=== PATIENT | female | born 1945 | race Two or more races ===

== ENCOUNTER → 2020-01-08 | Day surgery (SDC) | payer MEDICARE, OTHER ==
[2020-01-06 11:30] VITALS: BMI 29.8
[~2020-01-08] MED LIST: LACTATED RINGERS 1,000 ML IV SCH; LIDOCAINE 1% (10MG/ML) FOR IV START INTRADERMA PRN; LIDOCAINE 1% INJ 10MG/ML (20 ML MDV) ONE; PROPOFOL 10 MG/ML 20 ML VIAL IV ONE
[2020-01-08 07:47] LABS: Glucose,Whole Blood 134 mg/dL (75-99)
[2020-01-08 07:52] VITALS: TEMP 97.4
--- NOTE | 2020-01-08 08:17 | P.GSHP ---
History of Present Illness H&P Date: 01/08/20 CHIEF COMPLAINT: GERD and colon screen HISTORY OF PRESENT ILLNESS: The patient is a 74-year-old female who presents with gastroesophageal reflux disease and need for colon screen. Upper and lower endoscopy were offered for further evaluation and management. PAST MEDICAL HISTORY: Please see list. PAST SURGICAL HISTORY: Please see list. MEDICATIONS: Please see list. ALLERGIES: Please see list. SOCIAL HISTORY: No illicit drug use FAMILY HISTORY: No reports of Crohn disease or ulcerative colitis. REVIEW OF ORGAN SYSTEMS: CONSTITUTIONAL: No reports of fevers or chills. GI: Denies any blood in stools or constipation. PHYSICAL EXAM: VITAL SIGNS: Stable GENERAL: Well-developed pleasant in no acute distress. HEENT: No scleral icterus. Extraocular movements grossly intact. Moist buccal mucosa. NECK: Supple without lymphadenopathy. CHEST: Unlabored respirations. Equal bilateral excursions. CARDIOVASCULAR: Regular rate and rhythm. Distal 2+ pulses. ABDOMEN: Soft, nondistended. MUSCULOSKELETAL: No clubbing, cyanosis, or edema. ASSESSMENT: 1. Gastroesophageal reflux disease 2. Colon screen. PLAN: 1. 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, grade 1, states no chemo or radiation following, states had recent CT scan which showed "problems with my liver, spots on my kidney, some diverticulitis, and stones in my gallbladder" History of Any Multi-Drug Resistant Organisms: None Reported Past Surgical History: Hysterectomy, Orthopedic Surgery Additional Past Surgical History / Comment(s): mauricio carpal tunnel Past Anesthesia/Blood Transfusion Reactions: No Reported Reaction Past Psychological History: Anxiety Past Alcohol Use History: None Reported Past Drug Use History: None Reported - Past Family History Mother Family Medical History: Cancer Sister(s) Family Medical History: Cancer Additional Family Medical History / Comment(s): breast Medications and Allergies Home Medications Medication Instructions Recorded Confirmed Type ALPRAZolam [Xanax] 0.5 mg PO BID 01/06/20 01/08/20 History Acetaminophen Tab [Tylenol] 325 mg PO Q4H PRN 01/06/20 01/08/20 History Cholecalciferol [Vitamin D3 (25 2,000 unit PO DAILY 01/06/20 01/08/20 History Mcg = 1000 Iu)] Dapagliflozin Propanediol [Farxiga] 10 mg PO DAILY 01/06/20 01/08/20 History Docusate [Colace] 100 mg PO DAILY 01/06/20 01/08/20 History Escitalopram [Lexapro] 10 mg PO QAM 01/06/20 01/08/20 History Isosorbide Mononitrate [Isosorbide 30 mg PO DAILY 01/06/20 01/08/20 History Mononitrate ER] Levothyroxine Sodium [Levoxyl] 112 mcg PO DAILY 01/06/20 01/08/20 History Lisinopril-Hctz 20-12.5 mg 0.5 tab PO QAM 01/06/20 01/08/20 History [Zestoretic 20-12.5] Magnesium 200 mg PO DAILY 01/06/20 01/08/20 History Ondansetron [Zofran ODT] 4 mg PO Q8HR PRN 01/06/20 01/08/20 History glipiZIDE [Glucotrol] 10 mg PO AC-BRKFST 01/06/20 01/08/20 History Allergies Allergy/AdvReac Type Severity Reaction Status Date / Time No Known Allergies Allergy Verified 01/08/20 07:31 Surgical - Exam Vital Signs Temp Pulse Resp BP Pulse Ox 97.4 F L 71 18 161/78 94 L 01/08/20 07:40 01/08/20 07:40 01/08/20 07:40 01/08/20 07:40 01/08/20 07:40 Results - Labs Abnormal Lab Results - Last 24 Hours (Table) 01/08/20 Range/Units 07:46 POC Glucose (mg/dL) 134 H (75-99) mg/dL
--- NOTE | 2020-01-08 08:19 | P.PCN ---
Date of Procedure: 01/08/20 Description of Procedure: PREOPERATIVE DIAGNOSIS: Gastroesophageal reflux disease. Epigastric abdominal pain POSTOPERATIVE DIAGNOSIS: Gastroesophageal reflux disease. Epigastric abdominal pain Gastritis. Diaphragmatic hiatal hernia OPERATION: Esophagogastroduodenoscopy with biopsies along antrum. SURGEON: Viktoriya Lin MD ANESTHESIA: MAC. INDICATIONS: The patient is a 74-year-old female who presents with a history of reflux disease. Benefits and risks of the procedure were described. Informed consent was obtained. DESCRIPTION: The patient was brought into the endoscopy suite and laid in the left lateral decubitus position. An Olympus gastroscope was passed along the posterior oropharynx down to the distal esophagus where the squamocolumnar junction was encountered at 34 cm from the incisors. The stomach was entered and no bile reflux was found. Additional findings are listed below. Biopsies with cold forceps were obtained of the antrum. The first through third portion of the duodenum was examined and unremarkable. Retroflexion of the scope confirmed Hill grade 2 lower esophageal valve. The squamocolumnar junction demonstrated LA grade B erosive esophagitis. The stomach was desufflated. The patient tolerated the procedure well. FINDINGS: Squamocolumnar junction 34 cm from the incisors. Diaphragmatic hiatus at 35 cm. Hiatal hernia, 1 cm Hill grade 2 lower esophageal valve. LA grade B erosive esophagitis. No active duodenitis. Chronic gastritis RECOMMENDATIONS: Upper endoscopy as needed.
--- NOTE | 2020-01-08 08:41 | P.PCN ---
Date of Procedure: 01/08/20 Description of Procedure: PREOPERATIVE DIAGNOSIS: Colonoscopy screening POSTOPERATIVE DIAGNOSIS: Colonoscopy screening Tubular adenoma sigmoid colon 3 Sigmoid diverticulosis Internal hemorrhoids, grade 2 OPERATION: Colonoscopy to the ileocecal valve and appendiceal orifice, cecum Colonoscopy with cold forceps biopsies SURGEON: Viktoriya Lin MD. ANESTHESIA: MAC. INDICATIONS: The patient is an 74-year-old female who presents for her first colonoscopy screening. Benefits and risks were described and informed consent was obtained. DESCRIPTION OF PROCEDURE: The patient had undergone Suprep. She had been brought into the operating room and laid in the left lateral decubitus position. After adequate intravenous sedation, the rectum was examined with 2% lidocaine jelly. External hemorrhoids were encountered. The rectal tone was within normal limits. No lesions were palpated in the rectal vault. An Olympus colonoscope was advanced until the cecum, ileocecal valve and appendiceal orifice were clearly viewed. The prep was fair. Sigmoid diverticulosis was encountered. Multiple colonic polyps were found and removed with cold forceps. No evidence of focal colitis was found. Retroflexion of the scope demonstrated grade 2 internal hemorrhoids without active bleeding or inflammation. The colon was desufflated. The patient had tolerated the procedure well. Withdrawal time was over 6 minutes. FINDINGS: Aronchick preparation quality scale 2 (1-5) Internal hemorrhoids, grade 2 External hemorrhoids, grade 2 No arteriovenous malformations Sigmoid diverticulosis Removal of 3 polyps: - Cold forceps biopsy at 15 cm from the anal verge x 3, 3 to 5 mm polyps No focal colitis. RECOMMENDATIONS: Repeat colonoscopy in 5 years, 2024 or Cologua Plan - Discharge Summary Discharge Rx Participant: No New Discharge Prescriptions: Continue Ondansetron [Zofran ODT] 4 mg PO Q8HR PRN PRN Reason: Nausea Escitalopram [Lexapro] 10 mg PO QAM Docusate [Colace] 100 mg PO DAILY Acetaminophen Tab [Tylenol] 325 mg PO Q4H PRN PRN Reason: Pain glipiZIDE [Glucotrol] 10 mg PO AC-BRKFST Isosorbide Mononitrate [Isosorbide Mononitrate ER] 30 mg PO DAILY Cholecalciferol [Vitamin D3 (25 Mcg = 1000 Iu)] 2,000 unit PO DAILY Lisinopril-Hctz 20-12.5 mg [Zestoretic 20-12.5] 0.5 tab PO QAM Levothyroxine Sodium [Levoxyl] 112 mcg PO DAILY ALPRAZolam [Xanax] 0.5 mg PO BID Magnesium 200 mg PO DAILY Dapagliflozin Propanediol [Farxiga] 10 mg PO DAILY Discharge Medication List ALPRAZolam [Xanax] 0.5 mg PO BID 01/06/20 [History] Acetaminophen Tab [Tylenol] 325 mg PO Q4H PRN 01/06/20 [History] Cholecalciferol [Vitamin D3 (25 Mcg = 1000 Iu)] 2,000 unit PO DAILY 01/06/20 [History] Dapagliflozin Propanediol [Farxiga] 10 mg PO DAILY 01/06/20 [History] Docusate [Colace] 100 mg PO DAILY 01/06/20 [History] Escitalopram [Lexapro] 10 mg PO QAM 01/06/20 [History] Isosorbide Mononitrate [Isosorbide Mononitrate ER] 30 mg PO DAILY 01/06/20 [History] Levothyroxine Sodium [Levoxyl] 112 mcg PO DAILY 01/06/20 [History] Lisinopril-Hctz 20-12.5 mg [Zestoretic 20-12.5] 0.5 tab PO QAM 01/06/20 [History] Magnesium 200 mg PO DAILY 01/06/20 [History] Ondansetron [Zofran ODT] 4 mg PO Q8HR PRN 01/06/20 [History] glipiZIDE [Glucotrol] 10 mg PO AC-BRKFST 01/06/20 [History] Follow up Appointment(s)/Referral(s): Viktoriya Lin MD [STAFF PHYSICIAN] - 01/23/20 Patient Instructions/Handouts: Diverticulosis Diet (GEN), Diverticulosis (DC) Activity/Diet/Wound Care/Special Instructions: Repeat colonoscopy 5 years, 2024 or Cologaurd Discharge Disposition: HOME SELF-CARE
[2020-01-08 08:45] VITALS: PULSE 77
[2020-01-08 08:59] VITALS: BP 171/76; RESP 16
== END | disposition home or self-care (01) ==
LOC: ORWHC2ENDO 06:37
PROVIDERS: ATTEND Surgery Plastic and Reconstructive Surgery
DX: K29.50 Unspecified chronic gastritis without bleeding (principal); Z12.11 Encounter for screening for malignant neoplasm of colon; D12.5 Benign neoplasm of sigmoid colon; K57.30 Diverticulosis of large intestine without perforation or abscess without bleeding; K64.1 Second degree hemorrhoids; K64.4 Residual hemorrhoidal skin tags; K21.0 Gastro-esophageal reflux disease with esophagitis; K44.9 Diaphragmatic hernia without obstruction or gangrene; E11.9 Type 2 diabetes mellitus without complications; I10 Essential (primary) hypertension; E07.9 Disorder of thyroid, unspecified; F41.9 Anxiety disorder, unspecified; R93.89 Abnormal findings on diagnostic imaging of other specified body structures; Z79.899 Other long term (current) drug therapy; Z79.890 Hormone replacement therapy; Z79.84 Long term (current) use of oral hypoglycemic drugs; Z85.42 Personal history of malignant neoplasm of other parts of uterus; Z90.710 Acquired absence of both cervix and uterus; Z98.890 Other specified postprocedural states; Z80.3 Family history of malignant neoplasm of breast
CPT/HCPCS: 88305; 45380; 43239; J2001; J2704

== ENCOUNTER 2020-02-10 06:03 | Day surgery (SDC) | payer MEDICARE, OTHER ==
[2020-02-07 10:21] VITALS: BMI 29.4
[~2020-02-10 06:03] MED LIST changes: +HEPARIN SODIUM,PORCINE 5,000 UNIT/ML 1 ML VIAL SQ ONE; -LACTATED RINGERS 1,000 ML IV SCH; -LIDOCAINE 1% (10MG/ML) FOR IV START INTRADERMA PRN; -LIDOCAINE 1% INJ 10MG/ML (20 ML MDV) ONE; -PROPOFOL 10 MG/ML 20 ML VIAL IV ONE
[2020-02-10] MEDS ORDERED: HYDROmorphone 0.5 MG/0.5 ML SYRINGE IVP PRN (06:12)
[2020-02-10] MEDS ORDERED: MIDAZOLAM 2 MG/2 ML VIAL IV PRN (06:12)
[2020-02-10] MEDS ORDERED: ONDANSETRON 4 MG/2 ML VIAL IVP ONE (06:12)
[2020-02-10] MEDS ORDERED: LACTATED RINGERS 1,000 ML IV SCH (06:12)
[2020-02-10] MEDS ORDERED: DEXAMETHASONE SOD PHOSPHATE 10 MG/ML 1 ML VIAL IV ONE (06:12)
[2020-02-10] MEDS ORDERED: ONDANSETRON 4 MG/2 ML VIAL ONE (06:16)
[2020-02-10] MEDS ORDERED: LIDOCAINE 1% (10MG/ML) FOR IV START INTRADERMA ONE (06:29)
[2020-02-10 06:40] LABS: Glucose,Whole Blood 100 mg/dL (75-99)
[2020-02-10] MEDS ORDERED: LACTATED RINGERS 1,000 ML IV ONE ×2 (06:47→08:48)
[2020-02-10 06:58] LABS: HCT 44.4 % (34.0-46.0); HGB 13.7 gm/dL (11.4-16.0); MCH 27.9 pg (25.0-35.0); MCHC 30.9 g/dL (31.0-37.0); MCV 90.1 fL (80.0-100.0); Mean Platelet Volume 9.9; Platelet Count 172 k/uL (150-450); RBC 4.93 m/uL (3.80-5.40); RDW 13.4 % (11.5-15.5); WBC 5.9 k/uL (3.8-10.6)
[2020-02-10 07:05] LABS: Albumin 3.9 g/dL (3.5-5.0); Calcium 9.6 mg/dL (8.4-10.2); Potassium 4.5 mmol/L (3.5-5.1); Total Bilirubin 0.7 mg/dL (0.2-1.3); Total Protein 6.5 g/dL (6.3-8.2)
[2020-02-10] MEDS ORDERED: ROCURONIUM 10 MG/ML (5 ML VIAL) IV ONE (07:28)
[2020-02-10] MEDS ORDERED: INDOCYANINE GREEN 25 MG VIAL IV ONE (07:28)
[2020-02-10] MEDS ORDERED: GLYCOPYRROLATE 0.2 MG/ML 2 ML VIAL ONE (07:28)
[2020-02-10] MEDS ORDERED: PROPOFOL 10 MG/ML 20 ML VIAL IV ONE (07:28)
[2020-02-10] MEDS ORDERED: NEOSTIGMINE 1 MG/ML 10 ML VIAL ONE (07:28)
[2020-02-10] MEDS ORDERED: LIDOCAINE 1% INJ 10MG/ML (20 ML MDV) ONE (07:28)
[2020-02-10] MEDS ORDERED: SUCCINYLCHOLINE CHLORIDE 100 MG/5 ML SYR IV ONE (07:28)
[2020-02-10] MEDS ORDERED: fentaNYL (PF) 50 MCG/ML 2 ML AMP ONE (07:28)
--- NOTE | 2020-02-10 07:38 | P.GSHP ---
History of Present Illness H&P Date: 02/10/20 CHIEF COMPLAINT: Cholecystitis HISTORY OF PRESENT ILLNESS: The patient is a 74-year-old female who presents with history of epigastric including right upper quadrant abdominal pain. She underwent diagnostic studies for her gallbladder. Separately her clinical picture was consistent with cholecystitis. Now she presents for surgical intervention. PAST MEDICAL HISTORY: Please see list PAST SURGICAL HISTORY: Please see list MEDICATIONS: Please see list ALLERGIES: Please see list SOCIAL HISTORY: Please see list FAMILY HISTORY: Please see list REVIEW OF ORGAN SYSTEMS: CONSTITUTIONAL: No reports of fevers or chills. HEENT: Denies any troubles with the vision or hearing. ENDOCRINE: No reports of hypothyroidism. No diabetes. RESPIRATORY: No recent pneumonias. CARDIOVASCULAR: Denies chest pain or palpitations. History of hypertensive heart disease GI: No blood in stools or constipation. MUSCULOSKELETAL: Has occasional joint pain including back pain. NEURO: No seizure disorders or headaches. No recent stroke. PSYCH: No depression or suicidal ideation. GENITOURINARY: No active blood in urine. No urinary hesitancy. History of stage II chronic renal disorder HEMATOLOGIC: No personal or family history of DVTs or pulmonary emboli. SKIN: No skin cancer. PHYSICAL EXAM: VITAL SIGNS: Afebrile vital signs stable GENERAL: Well-developed pleasant in no acute distress. HEENT: No scleral icterus. Extraocular movements grossly intact. Moist buccal mucosa. NECK: Supple without lymphadenopathy. CHEST: Unlabored respirations. Equal bilateral excursions. CARDIOVASCULAR: Regular rate regular rhythm rhythm. Distal 2+ pulses. ABDOMEN: Soft, nondistended. Tender along the epigastrium and right upper quadrant. MUSCULOSKELETAL: No clubbing, cyanosis, or edema. NEURO: Cranial nerves II to XII within normal limits. No focal or lateralizing signs. PSYCH: Alert and oriented to person, place and time. SKIN: Well-perfused good skin turgor. ASSESSMENT: 1. Epigastric and right upper quadrant abdominal pain 2. Chronic cholecystitis 3. Symptomatic gallstones. PLAN: 1. Will need a robotic cholecystectomy possible open. Benefits and risks were described. 2. Heparin for DVT prophylaxis 5000 units. 3. Antibiotic prophylaxis. 4. 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, grade 1, states no chemo or radiation following, states had recent CT scan which showed "problems with my liver, spots on my kidney, some diverticulitis, and stones in my gallbladder" History of Any Multi-Drug Resistant Organisms: None Reported Past Surgical History: Hysterectomy, Orthopedic Surgery Additional Past Surgical History / Comment(s): mauricio carpal tunnel Past Anesthesia/Blood Transfusion Reactions: No Reported Reaction Smoking Status: Never smoker - Past Family History Mother Family Medical History: Cancer Sister(s) Family Medical History: Cancer Additional Family Medical History / Comment(s): breast Medications and Allergies Home Medications Medication Instructions Recorded Confirmed Type ALPRAZolam [Xanax] 0.5 mg PO BID 01/06/20 02/07/20 History Acetaminophen Tab [Tylenol] 325 mg PO Q4H PRN 01/06/20 02/07/20 History Cholecalciferol [Vitamin D3 (25 2,000 unit PO DAILY 01/06/20 02/07/20 History Mcg = 1000 Iu)] Dapagliflozin Propanediol [Farxiga] 10 mg PO DAILY 01/06/20 02/07/20 History Docusate [Colace] 100 mg PO DAILY 01/06/20 02/07/20 History Escitalopram [Lexapro] 10 mg PO QAM 01/06/20 02/07/20 History Isosorbide Mononitrate [Isosorbide 30 mg PO DAILY 01/06/20 02/07/20 History Mononitrate ER] Levothyroxine Sodium [Levoxyl] 112 mcg PO DAILY 01/06/20 02/07/20 History Lisinopril-Hctz 20-12.5 mg 0.5 tab PO QAM 01/06/20 02/07/20 History [Zestoretic 20-12.5] glipiZIDE [Glucotrol] 10 mg PO AC-BRKFST 01/06/20 02/07/20 History Allergies Allergy/AdvReac Type Severity Reaction Status Date / Time No Known Allergies Allergy Verified 02/07/20 10:17 Surgical - Exam Vital Signs Temp Pulse Resp BP Pulse Ox 97.8 F 65 18 141/67 95 02/10/20 06:26 02/10/20 06:26 02/10/20 06:26 02/10/20 06:26 02/10/20 06:26 Results - Labs 02/10/20 06:40 02/10/20 06:40 Abnormal Lab Results - Last 24 Hours (Table) 02/10/20 02/10/20 02/10/20 Range/Units 06:36 06:40 06:40 MCHC 30.9 L (31.0-37.0) g/dL Carbon Dioxide 32 H (22-30) mmol/L BUN 18 H (7-17) mg/dL Glucose 107 H (74-99) mg/dL POC Glucose (mg/dL) 100 H (75-99) mg/dL Diabetes panel 02/10/20 Range/Units 06:40 Sodium 140 (137-145) mmol/L Potassium 4.5 (3.5-5.1) mmol/L Chloride 104 (98-107) mmol/L Carbon Dioxide 32 H (22-30) mmol/L BUN 18 H (7-17) mg/dL Creatinine 0.88 (0.52-1.04) mg/dL Glucose 107 H (74-99) mg/dL Calcium 9.6 (8.4-10.2) mg/dL AST 24 (14-36) U/L ALT 15 (4-34) U/L Alkaline Phosphatase 80 (38-126) U/L Total Protein 6.5 (6.3-8.2) g/dL Albumin 3.9 (3.5-5.0) g/dL Calcium panel 02/10/20 Range/Units 06:40 Calcium 9.6 (8.4-10.2) mg/dL Albumin 3.9 (3.5-5.0) g/dL Pituitary panel 02/10/20 Range/Units 06:40 Sodium 140 (137-145) mmol/L Potassium 4.5 (3.5-5.1) mmol/L Chloride 104 (98-107) mmol/L Carbon Dioxide 32 H (22-30) mmol/L BUN 18 H (7-17) mg/dL Creatinine 0.88 (0.52-1.04) mg/dL Glucose 107 H (74-99) mg/dL Calcium 9.6 (8.4-10.2) mg/dL Adrenal panel 02/10/20 Range/Units 06:40 Sodium 140 (137-145) mmol/L Potassium 4.5 (3.5-5.1) mmol/L Chloride 104 (98-107) mmol/L Carbon Dioxide 32 H (22-30) mmol/L BUN 18 H (7-17) mg/dL Creatinine 0.88 (0.52-1.04) mg/dL Glucose 107 H (74-99) mg/dL Calcium 9.6 (8.4-10.2) mg/dL Total Bilirubin 0.7 (0.2-1.3) mg/dL AST 24 (14-36) U/L ALT 15 (4-34) U/L Alkaline Phosphatase 80 (38-126) U/L Total Protein 6.5 (6.3-8.2) g/dL Albumin 3.9 (3.5-5.0) g/dL
[2020-02-10] MEDS ORDERED: LIDOCAINE 1%-EPI 1:100,000 20 ML VIAL SQ ONE (07:59)
--- NOTE | 2020-02-10 09:09 | P.OP ---
Date of Procedure: 02/10/20 Description of Procedure: SURGEON: VIKTORIYA LIN MD PREOPERATIVE DIAGNOSES: 1. Symptomatic gallstones 2. Diabetes type 2, [id number] 3. Congestive heart failure, diastolic dysfunction 4. Hypertensive heart disease with congestive heart failure 5. Chronic kidney disease, stage II due to hypertension 6. Hypothyroidism 7. Generalized anxiety disorder POSTOPERATIVE DIAGNOSES: 1. Symptomatic gallstones with chronic gallstones 2. Diabetes type 2, [id number] 3. Congestive heart failure, diastolic dysfunction 4. Hypertensive heart disease with congestive heart failure 5. Chronic kidney disease, stage II due to hypertension 6. Hypothyroidism 7. Generalized anxiety disorder 8. Fatty liver disease 9. Peritoneal adhesions, right upper quadrant OPERATION: 1. Robotic-assisted da Giselle Xi laparoscopic lysis of adhesions 2. Robotic-assisted da Giselle Xi laparoscopic cholecystectomy, multiport with FIREFLY ESTIMATED BLOOD LOSS: 20 mL. SPECIMENS REMOVED: Gallbladder. COMPLICATIONS: None. OPERATIVE FINDINGS: 1. Moderate peritoneal adhesions of omentum to the right liver edge and gallbladder lysed over 20 minutes 2. Moderate diffuse fatty deposits throughout the liver with fatty liver disease 3. Large over 3 cm gallstone palpated within the gallbladder INDICATIONS: The patient is a 74-year-old female who presents with symptomatic gallstones. Robotic assisted laparoscopic approach was described. Benefits and risks of the procedure including but not limited to bleeding, infection, injury to the biliary tree was described. Informed consent was obtained. DESCRIPTION OF PROCEDURE: Patient was brought to the operating room, placed in supine position. After general induction, the abdomen had been prepped and draped in standard sterile fashion. The robotic da Giselle XI system was primed. After a timeout protocol was performed, the patient had been prepped and draped in standard sterile fashion. The patient was injected with indocyanine green. A 5 mm 0 degrees laparoscopic trocar entry was performed along the left upper quadrant. The abdomen insufflated to 15 mmHg pressure which was tolerated well. Diagnostic laparoscopy demonstrated no injury to bowel viscera or mesentery. The liver surface was unremarkable. Next, two 8 mm robotic ports were placed along the right upper abdomen. The camera 8-mm port was maintained along the epigastrium. Another 8 mm port was placed along the left upper abdominal wall after exchanging the 5 mm port. Please note that the ports were placed at least 10 to 15 cm away from the target anatomy of the gallbladder. The robot was docked along the left lateral abdomen. The patient was repositioned in reverse Trendelenburg position. Using a grasper for arm 3, a grasper for arm 4, including hook cautery for arm 1, the robotic system was docked and primed as described. Instruments were interchanged by the personal injury legal assistant including hook cautery, Bovie cautery and clip appliers. I had sat at the console. The gallbladder fundus was retracted over the dome of the liver. Initial attention was brought to the infundibulum including cystic lymph node. Initial dissection was performed over the cystic lymph node at the infundibulum using hook cautery. The infundibulum was retracted laterally to expose the cystic duct away from the common bile duct. The cystic duct including the cystic artery were dissected free from its surrounding tissue. FIREFLY was used to identify the cystic artery and cystic structures. A critical view of safety was obtained. Large PLASTIC clips were used throughout the entire case. Using a clip automobile painter, 2 clips were placed at the junction of the infundibulum and cystic duct. The cystic duct was divided between clips. Next, the cystic artery was similarly clipped and cauterized. Electro-Bovie cautery was used to remove the gallbladder from the hepatic fossa. Hemostasis was checked and found to be adequate. The robot was undocked. I re-scrubbed into the case. Using a 10 mm Endo Catch bag via the left upper quadrant incision, the specimen was removed from the abdominal cavity. The fascial defect of the left upper quadrant was oversewn using 0 Vicryl Bear [place]. All pneumoperitoneum instruments were evacuated from the abdominal cavity. The incisions were reapproximated using 4-0 Monocryl in an interrupted subcuticular fashion. Fascial defects were less than 8 mm in size. Please note along the trocar sites, local anesthetic was placed as a field block prior to insertion of all instruments. Liquid glue was applied to the skin. At the end of the procedure needle, sponge, and instrument count had been verified correct by the rn neurosurgical. The patient was transferred to postanesthesia care unit in stable condition. Intraoperative films were shared with the patient's family who were pleased with the level of care. Plan - Discharge Summary Discharge Rx Participant: No New Discharge Prescriptions: New Acetaminophen Tab [Tylenol Tab] 500 mg PO Q6H PRN #30 tablet PRN Reason: Pain Continue Escitalopram [Lexapro] 10 mg PO QAM Docusate [Colace] 100 mg PO DAILY glipiZIDE [Glucotrol] 10 mg PO AC-BRKFST Isosorbide Mononitrate [Isosorbide Mononitrate ER] 30 mg PO DAILY Cholecalciferol [Vitamin D3 (25 Mcg = 1000 Iu)] 2,000 unit PO DAILY Lisinopril-Hctz 20-12.5 mg [Zestoretic 20-12.5] 0.5 tab PO QAM Levothyroxine Sodium [Levoxyl] 112 mcg PO DAILY ALPRAZolam [Xanax] 0.5 mg PO BID Dapagliflozin Propanediol [Farxiga] 10 mg PO DAILY Discontinued Acetaminophen Tab [Tylenol] 325 mg PO Q4H PRN PRN Reason: Pain Discharge Medication List ALPRAZolam [Xanax] 0.5 mg PO BID 01/06/20 [History] Cholecalciferol [Vitamin D3 (25 Mcg = 1000 Iu)] 2,000 unit PO DAILY 01/06/20 [History] Dapagliflozin Propanediol [Farxiga] 10 mg PO DAILY 01/06/20 [History] Docusate [Colace] 100 mg PO DAILY 01/06/20 [History] Escitalopram [Lexapro] 10 mg PO QAM 01/06/20 [History] Isosorbide Mononitrate [Isosorbide Mononitrate ER] 30 mg PO DAILY 01/06/20 [History] Levothyroxine Sodium [Levoxyl] 112 mcg PO DAILY 01/06/20 [History] Lisinopril-Hctz 20-12.5 mg [Zestoretic 20-12.5] 0.5 tab PO QAM 01/06/20 [History] glipiZIDE [Glucotrol] 10 mg PO AC-BRKFST 01/06/20 [History] Acetaminophen Tab [Tylenol Tab] 500 mg PO Q6H PRN #30 tablet 02/10/20 [Rx] Follow up Appointment(s)/Referral(s): Viktoriya Lin MD [STAFF PHYSICIAN] - 02/18/20 Patient Instructions/Handouts: *[facility] - Laparoscopic Cholecystectomy Discharge Instructions, *[facility] - (Anesthesia) Discharge Instructions Outpatient Surgery, Low Fat Diet (DC) Activity/Diet/Wound Care/Special Instructions: No lifting over 10 pounds in 2 weeks until Feb 23. October shower. No bath tub soaks for two weeks until Feb 23 Diet as tolerated. No driving while on narcotics. Use Tylenol scheduled for the next 24-48 hours for best pain relief. Use ice along incisions for the today to prevent swelling. Discharge Disposition: HOME SELF-CARE
[2020-02-10 09:14] VITALS: RESP 16; TEMP 97.1
[2020-02-10] MEDS ORDERED: SIMETHICONE 80 MG CHEWABLE PO SCH (09:15)
[2020-02-10 09:23] LABS: Glucose,Whole Blood 162 mg/dL (75-99)
[2020-02-10] MEDS ORDERED: ACETAMINOPHEN TAB 500 MG TAB ONE (10:28)
[2020-02-10 10:49] VITALS: BP 122/65; PULSE 68
== END 2020-02-10 11:26 | disposition home or self-care (01) ==
LOC: OR 06:03
PROVIDERS: ATTEND Surgery Plastic and Reconstructive Surgery
DX: K80.10 Calculus of gallbladder with chronic cholecystitis without obstruction (principal); K66.0 Peritoneal adhesions (postprocedural) (postinfection); K76.0 Fatty (change of) liver, not elsewhere classified; I13.0 Hypertensive heart and chronic kidney disease with heart failure and stage 1 through stage 4 chronic kidney disease, or unspecified chronic kidney disease; I50.30 Unspecified diastolic (congestive) heart failure; E11.22 Type 2 diabetes mellitus with diabetic chronic kidney disease; N18.2 Chronic kidney disease, stage 2 (mild); E78.2 Mixed hyperlipidemia; E03.9 Hypothyroidism, unspecified; F41.1 Generalized anxiety disorder; Z79.82 Long term (current) use of aspirin; Z79.84 Long term (current) use of oral hypoglycemic drugs; Z79.890 Hormone replacement therapy; Z79.899 Other long term (current) drug therapy; Z90.710 Acquired absence of both cervix and uterus; Z98.890 Other specified postprocedural states; Z85.42 Personal history of malignant neoplasm of other parts of uterus; Z80.3 Family history of malignant neoplasm of breast; Z80.9 Family history of malignant neoplasm, unspecified; Z82.49 Family history of ischemic heart disease and other diseases of the circulatory system
CPT/HCPCS: 88304; 80053; 85027; 47562; J1644; J1100; J2710; J0690; J2405; J2001; J3010; J0330; J2704; J1170